=== PATIENT | female | born 1960 ===

== ENCOUNTER 2024-04-28 13:32 | Outpatient (CLI) | payer OTHER ==
[2024-05-01 16:08] LABS: ANTINUCLEAR ANTIBODIES IFA Negative (.)
[2024-05-02 11:11] LABS: ATYPICAL pANCA <1:20 titer (Neg:<1:20); CYTOPLASMIC (C-ANCA) <1:20 titer (Neg:<1:20); PERINUCLEAR (P-ANCA) <1:20 titer (Neg:<1:20)
== END 2024-04-28 13:33 | disposition home or self-care (01) ==
LOC: LAB.S 13:32
PROVIDERS: ATTEND Nurse Practitioner Family
DX: I77.6 Arteritis, unspecified (principal)
CPT/HCPCS: 36415; 85651; 86038; 86140